=== PATIENT | female | born 1980 | race American Indian/Alaskan Native ===

== ENCOUNTER 2021-12-27 15:41 | Emergency (ER) | payer SELFPAY ==
[2021-12-27 17:40] VITALS: BP 142/81
[2021-12-27 18:39] LABS: Hematocrit 33.2 % (30.3-42.9); Hemoglobin 10.2 gm/dl (10.1-14.3); Mean Corpuscular HGB Conc 31 % (30-34); Mean Corpuscular Volume 83 fl (79-97); Platelet Count 354 K/mm3 (140-440); Red Blood Count 4.03 M/mm3 (3.65-5.03)
[2021-12-27 18:43] LABS: Red Cell Distribution Width 25.5 % (13.2-15.2)
[2021-12-27 18:50] LABS: Blood Urea Nitrogen 8 mg/dL (7-17); Calcium 9.8 mg/dL (8.4-10.2); Hemolysis Index 1
[2021-12-27 19:01] LABS: BUN/Creatinine Ratio 13
[2021-12-27 23:51] LABS: Anisocytosis 1+; Basophils % (Manual) 0 % (0.0-1.8); Platelet Estimate Consistent w Auto; Total Cells Counted 100
== END 2021-12-28 05:40 | disposition left against medical advice (07) ==
LOC: ED 15:41
DX: T80.92XA Unspecified transfusion reaction, initial encounter (principal); Z53.21 Procedure and treatment not carried out due to patient leaving prior to being seen by health care provider
CPT/HCPCS: 36415; 80048; 85007; 85025; 86850; 86900; 86901